=== PATIENT | female | born 1980 | race African-American/Black ===

== ENCOUNTER 2020-07-04 03:22 | Emergency (ER) | payer BC ==
[2020-07-20] MEDS ORDERED: Ketorolac Tromethamine 15 MG/ML VIAL ONE (10:33)
== END 2020-07-04 03:55 | disposition home or self-care (01) ==
LOC: CSHERS 03:22
DX: Z00.8 Encounter for other general examination (principal)
CPT/HCPCS: 99281

== ENCOUNTER 2020-07-20 09:50 | Emergency (ER) | payer MEDICAID, SELFPAY ==
[2020-07-20 10:20] LABS: #Basophils 0.1 10x3/uL (0.0-0.2); #Eosinphils 0.2 10x3/uL (0.0-0.5); #Monocytes 0.6 10x3/uL (0.0-1.1); #Neutrophils 5.5 10x3/uL (1.5-8.4); %Basophils 0.7 % (0.0-2.0); %Eosinophils 2.5 % (0.0-6.0); %Lymphocytes 29.9 % (18.0-47.0); %Monocytes 6.6 % (0.0-10.0); %Neutrophils 60.1 % (40.0-75.0); Hemoglobin 12.9 g/dL (12.0-15.5); Mean Corpuscular HGB CONC 35.9 g/dL (32.0-36.0); Mean Corpuscular Hemoglobin 29.5 pg (27.0-33.0); Mean Corpuscular Volume 82.2 fl (81.6-98.3); Mean Platelet Volume 10.8 fl (7.4-10.4); Platelet Count 337 10x3/uL (150-450); RBC Distribution Width 13.7 % (11.5-14.5); Red Blood Cell (RBC) Count 4.37 10x6/uL (3.90-5.03); White Blood Cell (WBC) Count 9.2 10x3/uL (3.5-10.5)
[2020-07-20 11:17] LABS: Thyroid Stimulating Hormone 0.9824 uIU/mL (0.35-4.94)
[2020-07-20 11:26] LABS: BHCG - Serum Negative (NEGATIVE)
[2020-07-20 11:27] LABS: Pregs Control Background? CLEAR/WHITE (CLR/WHITE); Pregs Control Bar Appear? YES (CONTROL BAR)
[2020-07-20 11:43] LABS: ALT (SGPT) 15 U/L (8-55); AST (SGOT) 22 U/L (5-34); Albumin 4.2 g/dL (3.5-5.0); Alkaline Phosphatase 81 U/L (40-110); Anion Gap 15 mmol/L (10-20); BUN (Urea Nitrogen) 11 mg/dL (7.0-18.7); Bilirubin, Total 0.9 mg/dL (0.2-1.2); CK (CPK) 339 U/L (29-168); Calc. Creatinine Clearance 0 mL/min (70-130); Calcium 9.3 mg/dL (7.8-10.44); Carbon Dioxide 25 mmol/L (22-29); Chloride 104 mmol/L (98-107); Globulin 2.7 g/dL (2.4-3.5); Glucose 115 mg/dL (70-105); Lipase 15 U/L (8-78); Potassium 4.1 mmol/L (3.5-5.1); Protein, Total 6.9 g/dL (6.0-8.3); Sodium 140 mmol/L (136-145)
[2020-07-21 00:54] LABS: SARS-CoV-2 PCR by NAA Not Detected (NotDetected)
== END 2020-07-20 11:50 | disposition home or self-care (01) ==
LOC: CSHERS 09:50
DX: J06.9 Acute upper respiratory infection, unspecified (principal); R07.89 Other chest pain; Z20.822 Contact with and (suspected) exposure to COVID-19; F17.210 Nicotine dependence, cigarettes, uncomplicated
CPT/HCPCS: 71045; 80053; 82550; 83690; 84443; 84484; 84703; 85025; 85379; 87635; 93005; 96374; J1885; U0003; U0005

== ENCOUNTER 2020-10-28 01:06 | Emergency (ER) | payer MEDICAID, SELFPAY ==
[2020-10-28] MEDS ORDERED: Ondansetron PF 4 MG/2 ML Vial ONE (04:27)
[2020-10-28 05:22] LABS: BHCG - Serum Negative (NEGATIVE); Pregs Control Background? CLEAR/WHITE (CLR/WHITE); Pregs Control Bar Appear? YES (CONTROL BAR)
[2020-10-28 05:29] LABS: ALT (SGPT) 15 U/L (8-55); AST (SGOT) 19 U/L (5-34); Albumin 4.2 g/dL (3.5-5.0); Alkaline Phosphatase 71 U/L (40-110); Anion Gap 13 mmol/L (10-20); BUN (Urea Nitrogen) 13 mg/dL (7.0-18.7); Bilirubin, Total 0.6 mg/dL (0.2-1.2); Calc. Creatinine Clearance 0 mL/min (70-130); Carbon Dioxide 25 mmol/L (22-29); Chloride 107 mmol/L (98-107); Globulin 3.3 g/dL (2.4-3.5); Glucose 98 mg/dL (70-105); Lipase 17 U/L (8-78); Potassium 3.9 mmol/L (3.5-5.1); Protein, Total 7.5 g/dL (6.0-8.3); Sodium 141 mmol/L (136-145)
[2020-10-28 05:38] LABS: #Basophils 0.1 10x3/uL (0.0-0.2); #Eosinphils 0.2 10x3/uL (0.0-0.5); #Monocytes 0.6 10x3/uL (0.0-1.1); #Neutrophils 3.3 10x3/uL (1.5-8.4); %Basophils 0.6 % (0.0-2.0); %Eosinophils 2.5 % (0.0-6.0); %Lymphocytes 46.4 % (18.0-47.0); %Monocytes 7.1 % (0.0-10.0); %Neutrophils 43.1 % (40.0-75.0); Hemoglobin 13.7 g/dL (12.0-15.5); Mean Corpuscular HGB CONC 35.8 g/dL (32.0-36.0); Mean Platelet Volume 10.8 fl (7.4-10.4); Platelet Count 288 10x3/uL (150-450); RBC Distribution Width 13.9 % (11.5-14.5); Red Blood Cell (RBC) Count 4.73 10x6/uL (3.90-5.03); White Blood Cell (WBC) Count 7.7 10x3/uL (3.5-10.5)
[2020-10-28] MEDS ORDERED: Ketorolac Tromethamine 30 MG/ML VIAL ONE (07:01)
[2020-10-28] MEDS ORDERED: Morphine 4 MG/ML VIAL ONE (07:01)
== END 2020-10-28 08:55 | disposition home or self-care (01) ==
LOC: CSHERS 01:06
DX: D25.9 Leiomyoma of uterus, unspecified (principal); K52.9 Noninfective gastroenteritis and colitis, unspecified; K64.4 Residual hemorrhoidal skin tags; F17.210 Nicotine dependence, cigarettes, uncomplicated
CPT/HCPCS: 74177; 80053; 83690; 84703; 85025; 96372; 96374; 96375; J0500; J1885; J2270; J2405

== ENCOUNTER 2021-01-07 16:57 | Emergency (ER) | payer MEDICAID ==
[2021-01-07 17:44] LABS: #Basophils 0.1 10x3/uL (0.0-0.2); #Eosinphils 0.2 10x3/uL (0.0-0.5); #Monocytes 0.5 10x3/uL (0.0-1.1); #Neutrophils 4.4 10x3/uL (1.5-8.4); %Basophils 0.7 % (0.0-2.0); %Eosinophils 2.2 % (0.0-6.0); %Lymphocytes 27.3 % (18.0-47.0); %Monocytes 7.6 % (0.0-10.0); %Neutrophils 61.9 % (40.0-75.0); Hemoglobin 11.8 g/dL (12.0-15.5); Mean Corpuscular HGB CONC 35.1 g/dL (32.0-36.0); Mean Corpuscular Hemoglobin 28.8 pg (27.0-33.0); Mean Platelet Volume 10.1 fl (7.4-10.4); Platelet Count 354 10x3/uL (150-450); RBC Distribution Width 13.7 % (11.5-14.5); White Blood Cell (WBC) Count 7.1 10x3/uL (3.5-10.5)
[2021-01-07 18:01] LABS: ALT (SGPT) 12 U/L (8-55); AST (SGOT) 15 U/L (5-34); Alkaline Phosphatase 78 U/L (40-110); Anion Gap 15 mmol/L (10-20); BUN (Urea Nitrogen) 8 mg/dL (7.0-18.7); Bilirubin, Total 0.4 mg/dL (0.2-1.2); Calc. Creatinine Clearance 0 mL/min (70-130); Calcium 9.5 mg/dL (7.8-10.44); Carbon Dioxide 24 mmol/L (22-29); Chloride 105 mmol/L (98-107); Globulin 2.8 g/dL (2.4-3.5); Glucose 98 mg/dL (70-105); Potassium 3.9 mmol/L (3.5-5.1); Protein, Total 6.8 g/dL (6.0-8.3); Sodium 140 mmol/L (136-145)
[2021-01-07 18:26] LABS: Bilirubin Neg (Negative); Blood, Urine Negative (Negative); Clarity Clear (Clear); Glucose, Urine (Dipstick) Normal (Negative); Ketone, Urine Negative (Negative); Leukocyte Negative (Negative); Nitrite Negative (Negative); Protein, Urine (Dipstick) Negative (Neg-Trace); Specific Gravity, Urine 1.005 (1.002-1.036); Urobilinogen Normal mg/dL (Less than 2)
[2021-01-07 18:34] LABS: BHCG - Serum Negative (NEGATIVE); Pregs Control Background? CLEAR/WHITE (CLR/WHITE); Pregs Control Bar Appear? YES (CONTROL BAR)
== END 2021-01-07 20:29 | disposition home or self-care (01) ==
LOC: CSHERS 16:57
DX: T81.31XA Disruption of external operation (surgical) wound, not elsewhere classified, initial encounter (principal)
CPT/HCPCS: 36415; 80053; 81003; 83605; 84703; 85025; 85379; 87040; 93005

== ENCOUNTER 2021-01-22 11:04 | Emergency (ER) | payer SELFPAY | END 2021-01-22 12:00 | disposition home or self-care (01) | LOC: CSHERS 11:04 | DX: G89.18 Other acute postprocedural pain (principal); M79.671 Pain in right foot; F17.200 Nicotine dependence, unspecified, uncomplicated ==

== ENCOUNTER 2021-10-17 15:11 | Emergency (ER) | payer SELFPAY ==
[2021-10-17] MEDS ORDERED: Ondansetron ODT 4 MG TAB ONE (15:59)
[2021-10-17] MEDS ORDERED: Ketorolac Tromethamine 30 MG/ML VIAL ONE (15:59)
[2021-10-17] MEDS ORDERED: HYDROcodone/Acetaminophen 5/325 mg Tablet ONE (16:00)
[2021-10-17 16:25] LABS: #Eosinphils 0.2 10x3/uL (0.0-0.5); #Monocytes 0.5 10x3/uL (0.0-1.1); #Neutrophils 3.8 10x3/uL (1.5-8.4); %Basophils 0.4 % (0.0-2.0); %Eosinophils 2.1 % (0.0-6.0); %Lymphocytes 38.5 % (18.0-47.0); %Monocytes 6.9 % (0.0-10.0); Hemoglobin 11.5 g/dL (12.0-15.5); Mean Corpuscular HGB CONC 36.1 g/dL (32.0-36.0); Mean Corpuscular Hemoglobin 29.5 pg (27.0-33.0); Mean Corpuscular Volume 81.8 fl (81.6-98.3); Mean Platelet Volume 10.8 fl (7.4-10.4); Platelet Count 276 10x3/uL (150-450); RBC Distribution Width 14.1 % (11.5-14.5); White Blood Cell (WBC) Count 7.2 10x3/uL (3.5-10.5)
[2021-10-17 16:30] LABS: Bilirubin Neg (Negative); Blood, Urine 10 (Negative); Clarity Clear (Clear); Glucose, Urine (Dipstick) Normal (Negative); Ketone, Urine Negative (Negative); Leukocyte Negative (Negative); Nitrite Negative (Negative); Protein, Urine (Dipstick) Negative (Neg-Trace); pH, Urine 6.5 (5.0-9.0)
[2021-10-17 16:33] LABS: ALT (SGPT) 15 U/L (8-55); AST (SGOT) 16 U/L (5-34); Alkaline Phosphatase 70 U/L (40-110); Anion Gap 10 mmol/L (10-20); BUN (Urea Nitrogen) 13 mg/dL (7.0-18.7); Bilirubin, Total 0.5 mg/dL (0.2-1.2); Calc. Creatinine Clearance 0 mL/min (70-130); Calcium 8.9 mg/dL (7.8-10.44); Carbon Dioxide 24 mmol/L (22-29); Chloride 109 mmol/L (98-107); Estimated GFR 90; Globulin 2.4 g/dL (2.4-3.5); Glucose 96 mg/dL (70-105); Protein, Total 6.4 g/dL (6.0-8.3); Sodium 139 mmol/L (136-145)
[2021-10-17 16:48] LABS: Bacteria/HPF Rare-Few HPF (None Seen); RBC/HPF 0-3 HPF (0-3); Squamous Epithelial 0-3 HPF (0-3); WBC/HPF 0-3 HPF (0-3)
== END 2021-10-17 18:20 | disposition home or self-care (01) ==
LOC: CSHERS 15:11
DX: M25.571 Pain in right ankle and joints of right foot (principal); F17.210 Nicotine dependence, cigarettes, uncomplicated
CPT/HCPCS: 36415; 80053; 81003; 81015; 83880; 84484; 85025; 85379; 85652; 86140; 93005; 96372; J1885; Q0162

== ENCOUNTER 2021-11-06 18:03 | Emergency (ER) | payer SELFPAY ==
[2021-11-06] MEDS ORDERED: Ibuprofen 200 MG TAB ONE (19:15)
== END 2021-11-06 19:06 | disposition home or self-care (01) ==
LOC: CSHERS 18:03
DX: R51.9 Headache, unspecified (principal); B35.1 Tinea unguium; F17.210 Nicotine dependence, cigarettes, uncomplicated; W18.30XA Fall on same level, unspecified, initial encounter
CPT/HCPCS: 70450; 72125

== ENCOUNTER 2021-11-12 16:54 | Observation (INO) | payer SELFPAY ==
[~2021-11-12 16:54] MED LIST: Iopamidol 300 61% 100 ML VIAL FS ONE
[2021-11-12 17:39] LABS: #Basophils 0.1 10x3/uL (0.0-0.2); #Eosinphils 0.2 10x3/uL (0.0-0.5); #Monocytes 0.7 10x3/uL (0.0-1.1); #Neutrophils 4.5 10x3/uL (1.5-8.4); %Basophils 0.6 % (0.0-2.0); %Eosinophils 2.1 % (0.0-6.0); %Lymphocytes 31.4 % (18.0-47.0); %Monocytes 8.7 % (0.0-10.0); %Neutrophils 56.9 % (40.0-75.0); Hemoglobin 12.8 g/dL (12.0-15.5); Mean Corpuscular Hemoglobin 29.8 pg (27.0-33.0); Mean Corpuscular Volume 80.5 fl (81.6-98.3); Mean Platelet Volume 10.3 fl (7.4-10.4); Platelet Count 294 10x3/uL (150-450); RBC Distribution Width 14.6 % (11.5-14.5)
[2021-11-12 17:53] LABS: ALT (SGPT) 10 U/L (8-55); AST (SGOT) 14 U/L (5-34); Albumin 3.9 g/dL (3.5-5.0); Alkaline Phosphatase 69 U/L (40-110); Anion Gap 10 mmol/L (10-20); BUN (Urea Nitrogen) 9 mg/dL (7.0-18.7); Bilirubin, Total 0.7 mg/dL (0.2-1.2); Calc. Creatinine Clearance 0 mL/min (70-130); Carbon Dioxide 27 mmol/L (22-29); Chloride 106 mmol/L (98-107); Estimated GFR 105; Globulin 2.7 g/dL (2.4-3.5); Glucose 118 mg/dL (70-105); Protein, Total 6.6 g/dL (6.0-8.3); Sodium 139 mmol/L (136-145)
[2021-11-12] MEDS ORDERED: Nicotine 14 MG PATCH TD SCH (19:00)
[2021-11-12] MEDS: Nicotine 14 MG PATCH TD SCH (22:02)
[2021-11-12] MEDS: Acetaminophen 325 MG TAB PO PRN (22:02)
[2021-11-12 22:57] VITALS: BMI 37.6
[2021-11-13 02:21] LABS: SARS-CoV-2 NAA Rapid Test Not Detected (NotDetected)
[2021-11-13] MEDS: Acetaminophen 325 MG TAB PO PRN ×3 (04:26→15:29)
[2021-11-13 04:36] LABS: #Basophils 0.1 10x3/uL (0.0-0.2); #Eosinphils 0.2 10x3/uL (0.0-0.5); #Monocytes 0.7 10x3/uL (0.0-1.1); #Neutrophils 3.6 10x3/uL (1.5-8.4); %Basophils 0.7 % (0.0-2.0); %Eosinophils 2.1 % (0.0-6.0); %Lymphocytes 41.3 % (18.0-47.0); %Monocytes 8.7 % (0.0-10.0); %Neutrophils 46.9 % (40.0-75.0); Mean Corpuscular HGB CONC 36.5 g/dL (32.0-36.0); Mean Corpuscular Hemoglobin 29.2 pg (27.0-33.0); Mean Platelet Volume 10.7 fl (7.4-10.4); Platelet Count 287 10x3/uL (150-450); RBC Distribution Width 14.5 % (11.5-14.5); Red Blood Cell (RBC) Count 4.11 10x6/uL (3.90-5.03); White Blood Cell (WBC) Count 7.6 10x3/uL (3.5-10.5)
[2021-11-13 04:41] LABS: Anion Gap 11 mmol/L (10-20); BUN (Urea Nitrogen) 9 mg/dL (7.0-18.7); Calc. Creatinine Clearance 181 mL/min (70-130); Carbon Dioxide 25 mmol/L (22-29); Chloride 106 mmol/L (98-107); Estimated GFR 110; Glucose 107 mg/dL (70-105); Potassium 3.7 mmol/L (3.5-5.1); Sodium 138 mmol/L (136-145)
[2021-11-13] MEDS: Enoxaparin Sodium 40 MG/0.4 ML SYRINGE SC SCH (10:00)
[2021-11-13] MEDS ORDERED: Magnevist 469MG/ML 20 ML VIAL ONE (16:12)
[2021-11-13] MEDS: Acetaminophen/Codeine 30-300mg Tablet PO PRN ×2 (17:08→22:18)
[2021-11-13] MEDS: Nicotine 14 MG PATCH TD SCH (22:13)
[2021-11-14] MEDS: Acetaminophen/Codeine 30-300mg Tablet PO PRN (05:18)
[2021-11-14 08:23] VITALS: BP 123/60; TEMP 97.3
[2021-11-14] MEDS ORDERED: Fluticasone Propionate Nasal Spray 16 gm Bottle NASAL SCH (09:00)
[2021-11-14] MEDS: Enoxaparin Sodium 40 MG/0.4 ML SYRINGE SC SCH (10:44)
== END 2021-11-14 10:45 | disposition home or self-care (01) ==
LOC: CSHERS 16:54 → CSHTELE 21:20
PROVIDERS: ADMIT Family Medicine; ATTEND Internal Medicine
DX: R20.0 Anesthesia of skin (principal); H93.8X1 Other specified disorders of right ear; G89.29 Other chronic pain; M25.571 Pain in right ankle and joints of right foot; Z20.822 Contact with and (suspected) exposure to COVID-19; F17.290 Nicotine dependence, other tobacco product, uncomplicated; D57.3 Sickle-cell trait; Z79.899 Other long term (current) drug therapy; Z88.8 Allergy status to other drugs, medicaments and biological substances
CPT/HCPCS: 36415; 70450; 70496; 70551; 72156; 80048; 80053; 84484; 85025; 93005; 93306; 96372; A9579; G0378; J1650; Q9967; U0002

== ENCOUNTER 2022-01-01 13:11 | Inpatient (IN) | payer OTHER, SELFPAY ==
[2022-01-01 14:17] LABS: ALT (SGPT) 8 U/L (8-55); AST (SGOT) 19 U/L (5-34); Albumin 4.3 g/dL (3.5-5.0); Alkaline Phosphatase 75 U/L (40-110); Anion Gap 13 mmol/L (10-20); BUN (Urea Nitrogen) 13 mg/dL (7.0-18.7); Bilirubin, Total 0.9 mg/dL (0.2-1.2); Calc. Creatinine Clearance 0 mL/min (70-130); Carbon Dioxide 26 mmol/L (22-29); Chloride 104 mmol/L (98-107); Estimated GFR 91; Glucose 100 mg/dL (70-105); Protein, Total 7.3 g/dL (6.0-8.3); Sodium 139 mmol/L (136-145)
[2022-01-01 14:41] LABS: #Basophils 0.1 10x3/uL (0.0-0.2); #Eosinphils 0.2 10x3/uL (0.0-0.5); #Monocytes 0.6 10x3/uL (0.0-1.1); #Neutrophils 4.4 10x3/uL (1.5-8.4); %Basophils 0.7 % (0.0-2.0); %Eosinophils 2.3 % (0.0-6.0); %Lymphocytes 29.2 % (18.0-47.0); %Monocytes 7.6 % (0.0-10.0); %Neutrophils 60.1 % (40.0-75.0); Mean Corpuscular HGB CONC 37.1 g/dL (32.0-36.0); Mean Corpuscular Hemoglobin 30.2 pg (27.0-33.0); Mean Corpuscular Volume 81.4 fl (81.6-98.3); Mean Platelet Volume 10.7 fl (7.4-10.4); Platelet Count 292 10x3/uL (150-450); RBC Distribution Width 13.6 % (11.5-14.5); White Blood Cell (WBC) Count 7.3 10x3/uL (3.5-10.5)
[2022-01-01 14:50] LABS: BHCG - Serum Negative (NEGATIVE); Pregs Control Background? CLEAR/WHITE (CLR/WHITE); Pregs Control Bar Appear? YES (CONTROL BAR)
[2022-01-01 15:12] LABS: HIV (1/2) Antibody/Antigen Non-Reactive (NonReactive); HIV 1/2 INDEX 0.06 S/CO (<1.00)
[2022-01-01] MEDS ORDERED: Morphine 4 MG/ML VIAL ONE (17:38)
[2022-01-01] MEDS ORDERED: Ondansetron ODT 4 MG TAB PO PRN (17:40)
[2022-01-01] MEDS ORDERED: Ondansetron PF 4 MG/2 ML Vial IVP PRN (17:40)
[2022-01-01] MEDS ORDERED: Senokot S 8.6-50 MG TAB PO PRN (17:40)
[2022-01-01] MEDS ORDERED: Nicotine 14 MG PATCH TD PRN (17:40)
[2022-01-01] MEDS ORDERED: Benzonatate 100 MG CAP PO PRN (18:13)
[2022-01-01 19:22] LABS: SARS-CoV-2 NAA Rapid Test Not Detected (NotDetected)
[2022-01-01 19:43] LABS: Bilirubin Neg (Negative); Blood, Urine Negative (Negative); Clarity Clear (Clear); Glucose, Urine (Dipstick) Normal (Negative); Ketone, Urine Negative (Negative); Leukocyte Negative (Negative); Nitrite Negative (Negative); Protein, Urine (Dipstick) Negative (Neg-Trace); Specific Gravity, Urine 1.015 (1.005-1.030)
[2022-01-01 20:05] LABS: Bacteria/HPF None Seen HPF (None Seen); RBC/HPF 0-3 HPF (0-3); Squamous Epithelial 0-3 HPF (0-3); WBC/HPF 0-3 HPF (0-3)
[2022-01-01] MEDS: Famotidine 20 MG TAB PO SCH (20:41)
[2022-01-01] MEDS: Enoxaparin Sodium 40 MG/0.4 ML SYRINGE SC SCH (20:41)
[2022-01-01] MEDS: Amoxicillin/Potassium Clav 875 MG TAB PO SCH (20:41)
[2022-01-01] MEDS: Sodium Chloride 0.9% 1,000 ML IV SCH (20:42)
[2022-01-01] MEDS: Acetaminophen 325 MG TAB PO PRN (22:26)
[2022-01-02] MEDS: Ketorolac Tromethamine 30 MG/ML VIAL IVP SCH ×5 (00:15→23:21)
[2022-01-02 04:46] LABS: #Basophils 0.1 10x3/uL (0.0-0.2); #Eosinphils 0.2 10x3/uL (0.0-0.5); #Monocytes 0.5 10x3/uL (0.0-1.1); #Neutrophils 2.5 10x3/uL (1.5-8.4); %Basophils 0.8 % (0.0-2.0); %Eosinophils 2.7 % (0.0-6.0); %Lymphocytes 47.4 % (18.0-47.0); %Monocytes 8.7 % (0.0-10.0); %Neutrophils 40.2 % (40.0-75.0); Hemoglobin 11.9 g/dL (12.0-15.5); Mean Corpuscular HGB CONC 36.8 g/dL (32.0-36.0); Mean Corpuscular Hemoglobin 30.2 pg (27.0-33.0); Mean Platelet Volume 10.9 fl (7.4-10.4); Platelet Count 260 10x3/uL (150-450); RBC Distribution Width 13.7 % (11.5-14.5); Red Blood Cell (RBC) Count 3.94 10x6/uL (3.90-5.03); White Blood Cell (WBC) Count 6.2 10x3/uL (3.5-10.5)
[2022-01-02 04:56] LABS: Anion Gap 13 mmol/L (10-20); BUN (Urea Nitrogen) 15 mg/dL (7.0-18.7); Calc. Creatinine Clearance 0 mL/min (70-130); Calcium 8.7 mg/dL (7.8-10.44); Carbon Dioxide 24 mmol/L (22-29); Chloride 108 mmol/L (98-107); Estimated GFR 111; Glucose 96 mg/dL (70-105); Sodium 141 mmol/L (136-145)
[2022-01-02] MEDS: Amoxicillin/Potassium Clav 875 MG TAB PO SCH ×2 (11:05→20:34)
[2022-01-02] MEDS: Famotidine 20 MG TAB PO SCH ×2 (11:05→20:34)
[2022-01-02] MEDS: Sodium Chloride 0.9% 1,000 ML IV SCH (11:05)
[2022-01-02] MEDS ORDERED: guaiFENesin/Dextromethorphan 10 ML UDCUP PO PRN (11:27)
[2022-01-02 12:43] VITALS: BMI 369422.8
[2022-01-02] MEDS: Acetaminophen 325 MG TAB PO PRN ×2 (15:06→20:42)
[2022-01-02] MEDS: Guaifenesin DM 100-10/5 ML UDCUP PO PRN ×2 (15:06→20:34)
[2022-01-02] MEDS: Enoxaparin Sodium 40 MG/0.4 ML SYRINGE SC SCH (20:34)
[2022-01-03] MEDS: Ketorolac Tromethamine 30 MG/ML VIAL IVP SCH ×3 (05:32→17:36)
[2022-01-03 05:40] LABS: Hemoglobin 12.1 g/dL (12.0-15.5); Mean Corpuscular HGB CONC 36.8 g/dL (32.0-36.0); Mean Corpuscular Hemoglobin 30.1 pg (27.0-33.0); Mean Corpuscular Volume 81.8 fl (81.6-98.3); Mean Platelet Volume 10.9 fl (7.4-10.4); Platelet Count 244 10x3/uL (150-450); RBC Distribution Width 13.6 % (11.5-14.5); Red Blood Cell (RBC) Count 4.02 10x6/uL (3.90-5.03); White Blood Cell (WBC) Count 6.7 10x3/uL (3.5-10.5)
[2022-01-03 05:59] LABS: Anion Gap 12 mmol/L (10-20); BUN (Urea Nitrogen) 13 mg/dL (7.0-18.7); Calc. Creatinine Clearance 183 mL/min (70-130); Calcium 8.9 mg/dL (7.8-10.44); Carbon Dioxide 27 mmol/L (22-29); Chloride 104 mmol/L (98-107); Estimated GFR 111; Glucose 99 mg/dL (70-105); Sodium 139 mmol/L (136-145)
[2022-01-03 06:31] LABS: MDiff Complete? YES
[2022-01-03 06:32] LABS: Platelet Morphology Comment Appears Adequate
[2022-01-03 06:35] LABS: Eosinophils 3 % (0-10); Lymphocytes 52 % (21-51); Metamyelocyte 2 % (0-0); Monocytes 6 % (0-10); Neutrophil 35 % (42-75); Reactive Lymphocytes 1 % (0-10)
[2022-01-03] MEDS: Acetaminophen 325 MG TAB PO PRN (08:55)
[2022-01-03] MEDS: Amoxicillin/Potassium Clav 875 MG TAB PO SCH (08:55)
[2022-01-03] MEDS: Famotidine 20 MG TAB PO SCH (08:55)
[2022-01-03 12:16] VITALS: BP 120/67; TEMP 98.2
== END 2022-01-03 17:55 | disposition home or self-care (01) | DRG 948 ==
LOC: CSHERS 13:11 → INTOOBSV 17:17 → CSHTELE 17:17 → OBSVTOIN 01-03 07:22
PROVIDERS: ADMIT Family Medicine; ATTEND Family Medicine
DX: R53.1 Weakness (principal); J32.9 Chronic sinusitis, unspecified; Z91.81 History of falling; F17.210 Nicotine dependence, cigarettes, uncomplicated; Z88.6 Allergy status to analgesic agent; R20.0 Anesthesia of skin; D25.9 Leiomyoma of uterus, unspecified; Z79.899 Other long term (current) drug therapy; M25.571 Pain in right ankle and joints of right foot; D57.3 Sickle-cell trait; Z20.822 Contact with and (suspected) exposure to COVID-19; R79.1 Abnormal coagulation profile
CPT/HCPCS: 36415; 70450; 70551; 71045; 71275; 72148; 76856; 80048; 80053; 81001; 83036; 83519; 84443; 84484; 84703; 85025; 85379; 85652; 87389; 93005; 94760; 96372; 96374; 96375; 96376; G0378; J1650; J1885; J2270; J7050

== ENCOUNTER 2022-01-22 12:13 | Emergency (ER) | payer OTHER, SELFPAY ==
[2022-01-22] MEDS ORDERED: Dexamethasone 4 MG TAB ONE (13:31)
[2022-01-22] MEDS ORDERED: Ibuprofen 200 MG TAB ONE (13:31)
[2022-01-22] MEDS ORDERED: Ondansetron ODT 4 MG TAB ONE (13:31)
== END 2022-01-22 14:26 | disposition home or self-care (01) ==
LOC: CSHERS 12:13
DX: B34.9 Viral infection, unspecified (principal); R20.2 Paresthesia of skin; Z21 Asymptomatic human immunodeficiency virus [HIV] infection status; F17.210 Nicotine dependence, cigarettes, uncomplicated
CPT/HCPCS: 87804; 99284; J8540; Q0162

== ENCOUNTER 2022-01-30 18:22 | Emergency (ER) | payer SELFPAY ==
[2022-01-30 19:53] LABS: SARS-CoV-2 NAA Rapid Test Not Detected (NotDetected)
== END 2022-01-30 20:37 | disposition left against medical advice (07) ==
LOC: CSHERS 18:22
DX: Z53.21 Procedure and treatment not carried out due to patient leaving prior to being seen by health care provider (principal)
CPT/HCPCS: 93005

== ENCOUNTER 2022-03-12 09:29 | Emergency (ER) | payer SELFPAY ==
[2022-03-12 10:37] LABS: Bilirubin Neg (Negative); Blood, Urine 250 (Negative); Clarity Slightly Cloudy (Clear); Glucose, Urine (Dipstick) Normal (Negative); Ketone, Urine Negative (Negative); Leukocyte 100 (Negative); Nitrite Negative (Negative); Protein, Urine (Dipstick) 30 mg/dl (Neg-Trace); Urobilinogen Normal mg/dL (Less than 2); pH, Urine 6.5 (5.0-9.0)
[2022-03-12 10:38] LABS: #Basophils 0.1 10x3/uL (0.0-0.2); #Eosinphils 0.2 10x3/uL (0.0-0.5); #Monocytes 0.5 10x3/uL (0.0-1.1); #Neutrophils 3.9 10x3/uL (1.5-8.4); %Basophils 0.9 % (0.0-2.0); %Eosinophils 2.4 % (0.0-6.0); %Lymphocytes 31.6 % (18.0-47.0); %Monocytes 7.4 % (0.0-10.0); %Neutrophils 57.4 % (40.0-75.0); Hemoglobin 13.4 g/dL (12.0-15.5); Mean Corpuscular Volume 81.2 fl (81.6-98.3); Mean Platelet Volume 10.7 fl (7.4-10.4); Platelet Count 296 10x3/uL (150-450); RBC Distribution Width 13.9 % (11.5-14.5); Red Blood Cell (RBC) Count 4.46 10x6/uL (3.90-5.03); White Blood Cell (WBC) Count 6.7 10x3/uL (3.5-10.5)
[2022-03-12 10:43] LABS: Pregnancy Test - Urine (BHCG) Negative (Negative); Pregu Control Background? CLEAR/WHITE (CLR/WHITE); Pregu Control Bar Appear? YES (CONTROL BAR)
[2022-03-12 10:45] LABS: Amphetamine Detected (NotDetected); Barbiturates Screen Not Detected (NotDetected); Benzodiazepine Screen Not Detected (NotDetected); Cocaine Metabolite Screen Not Detected (NotDetected); Methadone Not Detected (NotDetected); Methamphetamine Detected (NotDetected); Opiate Screen Not Detected (NotDetected); Oxycodone Screen Not Detected (NotDetected); Phencyclidine (PCP) Detected (NotDetected); THC/Cannabinoid Screen Not Detected (NotDetected); Tricyclic Screen Not Detected (NotDetected)
[2022-03-12] MEDS ORDERED: diphenhydrAMINE 50 MG/ML VIAL ONE (10:52)
[2022-03-12] MEDS ORDERED: Ketorolac Tromethamine 30 MG/ML VIAL ONE (10:52)
[2022-03-12 10:53] LABS: ALT (SGPT) 19 U/L (8-55); AST (SGOT) 20 U/L (5-34); Acetaminophen Less than 10.0 mcg/mL (10.0-30.0); Albumin 4.3 g/dL (3.5-5.0); Alcohol Less than 10 mg/dL (Less than 10); Alkaline Phosphatase 69 U/L (40-110); Anion Gap 14 mmol/L (10-20); BUN (Urea Nitrogen) 9 mg/dL (7.0-18.7); Bilirubin, Total 1.1 mg/dL (0.2-1.2); Calc. Creatinine Clearance 0 mL/min (70-130); Calcium 9.3 mg/dL (7.8-10.44); Carbon Dioxide 26 mmol/L (22-29); Chloride 103 mmol/L (98-107); Estimated GFR 101; Globulin 2.8 g/dL (2.4-3.5); Glucose 101 mg/dL (70-105); Potassium 4.2 mmol/L (3.5-5.1); Protein, Total 7.1 g/dL (6.0-8.3); Salicylate Less than 8.0 mg/dL (15.0-30.0); Sodium 139 mmol/L (136-145)
[2022-03-12] MEDS ORDERED: Haloperidol Lactate 5 MG/ML VIAL ONE (10:53)
[2022-03-12 10:55] LABS: RBC/HPF 0-3 HPF (0-3)
[2022-03-12 10:56] LABS: Bacteria/HPF 2+ HPF (None Seen)
== END 2022-03-12 12:07 | disposition home or self-care (01) ==
LOC: CSHERS 09:29
DX: T40.711A Poisoning by cannabis, accidental (unintentional), initial encounter (principal); E86.0 Dehydration; F17.210 Nicotine dependence, cigarettes, uncomplicated
CPT/HCPCS: 80053; 80306; 80307; 81003; 81015; 81025; 83690; 85025; 96361; 96372; 96374; 96375; J1200; J1630; J1885

== ENCOUNTER 2022-05-12 11:39 | Emergency (ER) | payer SELFPAY ==
[2022-05-12] MEDS ORDERED: Ketorolac Tromethamine 30 MG/ML VIAL ONE (12:09)
[2022-05-12 13:11] LABS: SARS-CoV-2 NAA Rapid Test Not Detected (NotDetected)
== END 2022-05-12 13:35 | disposition home or self-care (01) ==
LOC: CSHERS 11:39
DX: M79.10 Myalgia, unspecified site (principal); R68.83 Chills (without fever); F17.210 Nicotine dependence, cigarettes, uncomplicated; Z20.822 Contact with and (suspected) exposure to COVID-19
CPT/HCPCS: 36416; 96372; 99283; J1885; U0002